=== PATIENT | male | born 1995 | race Caucasian/White ===

== ENCOUNTER 2018-08-10 08:02 | Emergency (ER) | END 2018-08-10 08:40 | disposition home or self-care (01) ==

== ENCOUNTER 2018-08-14 06:32 | Emergency (ER) | END 2018-08-14 07:50 | disposition home or self-care (01) ==

== ENCOUNTER 2018-08-16 15:41 | Emergency (ER) | END 2018-08-16 19:47 | disposition home or self-care (01) ==